=== PATIENT | male | born 1965 | race Caucasian/White ===

== ENCOUNTER 2021-05-12 18:05 | Emergency (ER) | payer OTHER, SELFPAY ==
[2021-05-12 18:27] VITALS: BP 142/95; PULSE 72; RESP 18; TEMP 36.8; O2SAT 96; BMI 41.0
--- NOTE | 2021-05-12 21:59 | ED.MALEGU ---
HPI - Male Genitourinary General Chief complaint: General Medical Stated complaint: bleeding Hemorrhoid Time Seen by Provider: 05/12/21 21:58 Source: patient Mode of arrival: ambulatory Limitations: no limitations History of Present Illness HPI Narrative: Patient with history of hemorrhoids comes here for bleeding hemorrhoid for last 3- 4 days getting better now issues per patient it without much relief Related Data Previous Rx's Medication Instructions Recorded hydrocortisone acetate 25 mg 25 mg ME BID #12 ea 05/12/21 rectal suppository (Anusol-HC) Allergies Allergy/AdvReac Type Severity Reaction Status Date / Time No Known Allergies Allergy Verified 05/12/21 18:26 PMFSH Past Medical History Surgical History S/P hernia surgery Social History Social History Advance Directives: No Advance Directives Information Provided: No Physical Exam Vital Signs: Vital Signs: Last Vital Signs Temp 98.2 F 05/12/21 18:27 Pulse 72 05/12/21 18:27 Resp 18 05/12/21 18:27 BP 142/95 H 05/12/21 18:27 Pulse Ox 96 05/12/21 18:27 BMI result Body Mass Index 41.0 GI: Inspection: Yes normal to inspection Palpation (GI): Soft to palpation and nontender Rectal Exam - Male: Yes External hemorrhoid(s) present (gr 4 with bleeding) : Male General Exam: Yes normal external exam Penis: normal penis Meatus: meatus normal Testes: Testes normal Discharge Plan Discharge Clinical Impression: Bleeding external hemorrhoids Patient Disposition: Home, Self-Care Instructions: Hemorrhoids (ED) Additional Instructions: Avoid straining Suppository as advised twice daily for hemorrhoids Follow-up with surgeon Prescriptions: New hydrocortisone acetate [Anusol-HC] 25 mg suppository 25 mg ME BID Qty: 12 RF: 0 Referrals: Isaiah Goddard MD [Physician] - 5 days Interventions: ED Discharge Assessment Last Done: 05/12/21 22:24 Discharge Date/Time: 05/12/21 22:26
== END 2021-05-12 22:26 | disposition home or self-care (01) ==
PROVIDERS: Emergency Provider Internal Medicine; PCP Hospitalist
DX: K64.4 Residual hemorrhoidal skin tags (principal)
CPT/HCPCS: 99283

== ENCOUNTER → 2021-05-24 14:43 | Outpatient (BNVA) | payer OTHER, SELFPAY | PROVIDERS: PCP Hospitalist; Referring Provider Hospitalist; Visit Provider Surgery | DX: K64.5 Perianal venous thrombosis (principal) | CPT/HCPCS: 46600 ==